=== PATIENT | male | born 1965 | race Caucasian/White ===

== ENCOUNTER → 2017-05-17 | Outpatient (CLI) | payer OTHER, BC ==
[~2017-05-17] MED LIST: ATOR-24 PO; CYM30 PO; DICL-201 PO; HYDC25 PO; LISI-729 PO; MELO15TA4 PO; METF500T PO; MULT-506 PO; OXYC-57 PO; PRLSR20 PO
[2017-05-17 13:38] LABS: BASO % 0.5 %; BASO ABS # 0.03 K/uL (0-0.2); COMPLETE YES; EOS % 4.1 %; HEMATOCRIT 42.9 % (42-52); IG% 0.4 %; LYMPH % 38.6 %; LYMPH ABS # 2.17 K/uL (1.2-3.4); MEAN CELL VOLUME 94.1 fL (80-100); MEAN PLATELET VOLUME 10.1 fL (7.4-10.4); NEUT % 45.4 %; PLATELET COUNT 213 K/uL (130-400); RED BLOOD COUNT 4.56 M/uL (4.7-6.1); WHITE BLOOD COUNT 5.62 K/uL (4.8-10.8)
[2017-05-17 14:05] LABS: BLOOD UREA NITROGEN 13 mg/dl (7-18); BUN/CREATININE RATIO 12.9 (10-20); CALCIUM 9.4 mg/dl (8.5-10.1); CARBON DIOXIDE 30 mmol/L (21-32); CHLORIDE 101 mmol/L (98-107); GLUCOSE 109 mg/dl (70-99); POTASSIUM 3.8 mmol/L (3.5-5.1); SODIUM 138 mmol/L (136-145)
== END | disposition home or self-care (01) ==
LOC: C.LABBC 09:59
PROVIDERS: ATTEND Orthopaedic Surgery
DX: S83.241D Other tear of medial meniscus, current injury, right knee, subsequent encounter (principal); X58.XXXD Exposure to other specified factors, subsequent encounter; Z01.812 Encounter for preprocedural laboratory examination

== ENCOUNTER → 2017-05-27 | Day surgery (SDC) | payer OTHER, BC ==
[2017-05-19 08:02] VITALS: Ht 177.8 cm; Wt 123.6 kg
[~2017-05-27] VITALS: Ht 177.8 cm; Wt 123.6 kg
[~2017-05-27] MED LIST changes: +ATROPINE SULFATE 0.1 MG/ML 5ML SYR IV PRN; +CEFAZOLIN 3000 MG/65 ML D5W IV SCH; +DEXAMETHASONE SOD INJ 4 MG/ML VIAL ONE; +EpHEDrine SULFATE INJ 50 MG/ML AMP IV PRN; +EpINEphrine INJ 1MG/ML AMP 1 MG/ML AMP ONE; +FENTANYL CITRATE INJ 50 MCG/1 ML 2 ML VIAL IV PRN; +FENTANYL CITRATE INJ 50 MCG/1 ML 2 ML VIAL ONE; +HYDROmorphone INJ 1 MG/ML SYR IV PRN; +KETOROLAC TROMETHAMINE 30 MG/ML VIAL ONE; +LACTATED RINGER'S 1000ML 1,000 ML IV SCH; +LIDOCAINE HCL 2% 2 ML VIAL (20MG/ML) ONE; +MIDAZOLAM HCL 1 MG/ML 2ML VIAL ONE; +ONDANSETRON INJ 2 MG/ML 2 ML VIAL IV PRN; +ONDANSETRON INJ 2 MG/ML 2 ML VIAL ONE; +OXYCODONE/ACETAMINOPHEN 5-325 TAB PO PRN; +PROMETHAZINE HCL INJ 12.5 MG in SODIUM CHLORIDE 0.9% 50ML 50 ML IV PRN; +PROPOFOL IV EMULSION 10 MG/ML 20 ML VIAL IV ONE; +ROPIVACAINE 0.5% 5 MG/ML 30 ML VIAL ONE; +SODIUM CHLORIDE 0.9% 1000ML 1,000 ML IV SCH
--- NOTE | 2017-05-27 11:40 | History & Physical Bridge - [place] ---
H&P Re-Evaluation Bridge Note: I have examined the patient, reviewed the History & Physical and in the interval since the performance of the History & Physical I have noted the following changes of clinical significance: No changes noted
--- NOTE | 2017-05-27 14:52 | Discharge Instructions-SurgCtr ---
Discharge Instructions Date of Service May 27, 2017. Visit Reason for Visit: Acute Meniscal Tear Medial Discharge Discharge Diagnosis / Problem: SAME ABOVE Discharge Goals Goal(s): Decrease discomfort, Improve function Medications Stopped Medications Name(s): METFORMIN STOPPED WEDNESDAY Restart Stopped Medication(s): FEBRUARY RESTART 05/27/2017 Activity Recommendations Activity Limitations: as noted below Lifting Limitations: until after follow-up appointment Exercise/Sports Limitations: until after follow-up appointment Anesthesia . Post Anesthesia Instructions: If you have had General Anesthesia or IV Sedation: * Do not drive today. * Resume driving when surgeon permits. * Do not make important decisions or sign legal documents today. * Call surgeon for: 1. Temperature elevations greater than 101 degrees F. 2. Uncontrollable pain. 3. Excessive bleeding. 4. Persistent nausea and vomiting. 5. Medication intolerance (nausea, vomiting or rash). * For nausea and vomiting use only clear liquids such as: tea, soda, bouillon until nausea subsides, then gradually increase diet as tolerated. * If you have any concerns or questions, call your surgeon's office. If physician is unavailable and it is an emergency, call 911 or go to the nearest emergency room. . Instructions / Follow-Up Instructions / Follow-Up MEDICATIONS: * Resume previous medications unless instructed otherwise by your surgeon. * Always take pain medication on a full stomach or with food to avoid upset stomach. * Do not drink alcohol or drive while taking narcotics. * Ibuprofen or Tylenol may be taken if narcotic not needed. SPECIAL CARE INSTRUCTIONS: __ None _X_ Keep extremity elevated and iced x 48 hours; apply ice 20-30 minutes 8-10 times/day. May remove at night. _X_ Crutches _X_ May discard when able __ Brace/Post-op shoe __ 24 hrs/day __ Remove at night _X_ Dressing __ Maintain until seen in office, may shower with plastic over site _X_ Remove dressings in 24-48 hours and then may shower _X_ Cover incisions with band-aids after showering __ Do not remove steri-strips Call physician if chills or temperature rises above 102 degrees or pain unrelieved by prescribed pain medications. Office [phone] Diet Recommendations Home Diet: no limitations Fluid Restriction: None Procedures Procedures Performed: Right Knee Arthroscopy With Partial Medial Meniscectomy Pending Studies Studies pending at discharge: no Work Instructions Return To Work: after follow-up Medical Emergencies . Who to Call and When: Medical Emergencies: If at any time you feel your situation is an emergency, please call 911 immediately. . Non-Emergent Contact Non-Emergency issues call your: Primary Care Provider Call Non-Emergent contact if: you have a fever, temperature is above 101.5 . . "Provider Documentation" section prepared by Saurabh Méndez. .
--- NOTE | 2017-05-27 15:05 | [facility] Post Operative Brief Note ---
Immediate Operative Summary Operative Date May 27, 2017. Pre-Operative Diagnosis Acute Medial Meniscus Tear Right Knee and Chondromalacia Post-Operative Diagnosis same Procedure(s) Performed Right Knee Arthroscopy With Partial Medial Meniscectomy and Chondroplasty Surgeon Dr. Josr Vale Gas Charger Surgeon(s) Junaid Méndez PA-C Estimated Blood Loss 5CC Findings as above Specimens none Complication(s) None Disposition Recovery Room / PACU
[2017-05-27 15:23] VITALS: TEMP 36.4
--- NOTE | 2017-05-27 15:46 | Anesthesia Progress Nt - [facility] ---
Anesthesia Post Op Note Date & Time May 27, 2017 at 15:45 Vital Signs Pain Intensity: 5.0 Vital Signs Past 12 Hours Date Time Temp Pulse Resp B/P (MAP) Pulse Ox O2 Delivery O2 Flow Rate FiO2 05/27/17 15:23 36.4 78 18 158/80 (106) 98 Room Air 05/27/17 15:17 36.4 78 18 05/27/17 15:17 79 18 93 05/27/17 15:15 143/88 05/27/17 15:12 78 18 05/27/17 15:12 77 18 95 05/27/17 15:10 138/80 05/27/17 15:07 80 12 93 05/27/17 15:07 80 12 05/27/17 15:05 153/85 05/27/17 15:02 73 15 05/27/17 15:02 74 15 99 05/27/17 15:00 146/89 05/27/17 14:57 71 17 99 05/27/17 14:57 73 17 05/27/17 14:55 141/89 05/27/17 14:52 75 18 05/27/17 14:52 74 18 98 05/27/17 14:50 142/88 05/27/17 14:48 36.1 78 20 141/81 98 Mask 6 05/27/17 14:47 78 18 05/27/17 14:47 78 18 141/81 94 05/27/17 12:45 37.0 78 22 138/88 (105) 95 Room Air Notes Mental Status: alert / awake / arousable, participated in evaluation Pt Amnestic to Procedure: Yes Nausea / Vomiting: adequately controlled Pain: adequately controlled Airway Patency, RR, SpO2: stable & adequate BP & HR: stable & adequate Hydration State: stable & adequate Anesthetic Complications: no major complications apparent
[2017-05-27 15:53] VITALS: BP 139/88; PULSE 74; O2SAT 98
--- NOTE | 2017-05-29 09:00 | OPERATIVE REPORT ---
DATE OF OPERATION: 05/27/2017 PREOPERATIVE DIAGNOSIS: Recurrent medial meniscal tear of the right knee. 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 PROCEDURE: Right knee diagnostic arthroscopy with chondroplasty and partial medial meniscectomy. SURGEON: Dr. Asif Vale. DANCE PROFESSOR: Junaid Méndez PA-C, whose assistance was necessary for positioning the hand and helping with instrumentation. ANESTHESIA: General with a right interscalene nerve block. COMPLICATIONS: None. CONDITION: Stable to PACU. INDICATIONS: Sreekanth is a pleasant 52-year-old male who injured his knee while at work over 6 months ago. I did a knee arthroscopy on him about 6 months ago with partial medial meniscectomy. I was able to take the meniscus right back to stable margins. Initially, postoperatively he did fantastic, he was not having any knee pain and then he reinjured his right knee and then his knee pain abruptly returned. I treated him conservatively for close to 4 months but his knee pain was not improving. I got an MRI which showed a new medial meniscal tear. He elected to undergo arthroscopy. OPERATION AND FINDINGS: On 05/27/2017 he arrived at [facility] for the above procedure. He was seen in the preoperative holding area and the operative extremity was identified and signed. He was given a preoperative antibiotic, taken back to the operating room, laid on the table in supine position and put under general anesthesia. The right knee was then prepped and draped in sterile fashion. Time-out was done and the patient and operative extremity was properly identified. A scope was introduced in the lateral parapatellar portal. Diagnostic arthroscopy showed no cartilage damage to the trochlea. There were no loose bodies in the suprapatellar pouch. The scope was brought into the medial compartment. There was grade 2 and grade 3 chondral changes throughout the distal medial femoral condyle and some grade 2 chondral changes on the tibial plateau. There was a new radial tear of the medial meniscus. A medial parapatellar portal was made under direct visualization. A probe was used to probe the meniscus and it was definitely a new tear. A shaver was used to remove the meniscal fragments back to stable margins. The shaver was also used to remove all unstable cartilaginous fragments and complete a chondroplasty. The scope was then brought into the trochlea. ACL and PCL were intact. The scope was brought into the lateral compartment and the cartilage and meniscus were completely intact laterally. The scope was then put into the medial parapatellar portal. Repeat diagnostic arthroscopy showed no additional pathology. Multiple pictures were taken of the medial meniscus. Arthroscopic instruments were removed from the knee. Portal sites were closed with 3-0 nylon. The knee was then injected with 30 mL of ropivacaine and Toradol. He was then placed in a soft compressive dressing, extubated, transferred to a [facility] and taken to the postanesthesia care unit in stable condition. He tolerated the procedure well. I attest to the content of the Intraoperative Record and any orders documented therein. Any exception s are noted below.
== END | disposition home or self-care (01) ==
LOC: X.SURG 12:26
PROVIDERS: ATTEND Orthopaedic Surgery
DX: M23.231 Derangement of other medial meniscus due to old tear or injury, right knee (principal); X58.XXXA Exposure to other specified factors, initial encounter; E11.9 Type 2 diabetes mellitus without complications; Z82.49 Family history of ischemic heart disease and other diseases of the circulatory system; Z83.3 Family history of diabetes mellitus; Z82.3 Family history of stroke

== ENCOUNTER 2025-08-06 07:15 | Observation (INO) ==
--- NOTE | 2025-07-10 14:02 | PAT Medication Instructions ---
Medication Instructions Date of Service July 10, 2025 Home Medications Medication Instructions Recorded celecoxib 200 mg capsule (Celebrex) 200 mg PO BID PRN pain #60 caps 06/12/25 tramadol 50 mg tablet 50 mg PO Q8H PRN pain #30 tabs 07/10/25 hydrochlorothiazide 25 mg tablet 25 mg PO QAM lisinopril 20 mg tablet 20 mg PO QAM metformin 500 mg tablet 500 mg PO BID montelukast 10 mg tablet 10 mg PO PM multivitamin 1 tab PO DAILY omeprazole 20 mg capsule,delayed release 20 mg PO QAM potassium 99 mg tablet 99 mg PO DAILY rosuvastatin 10 mg tablet 10 mg PO PM sertraline 25 mg tablet 25 mg PO QAM celecoxib 200 mg capsule (Celebrex) 200 mg PO BID PRN tramadol 50 mg tablet 50 mg PO Q8H PRN ASK your surgeon for instructions celecoxib 200 mg capsule (Celebrex) 200 mg PO BID PRN DO NOT take the morning of surgery hydrochlorothiazide 25 mg tablet 25 mg PO QAM lisinopril 20 mg tablet 20 mg PO QAM metformin 500 mg tablet 500 mg PO BID multivitamin 1 tab PO DAILY potassium 99 mg tablet 99 mg PO DAILY Take morning of surgery With a small sip of water, OTHERWISE NOTHING TO EAT OR DRINK AFTER MIDNIGHT: omeprazole 20 mg capsule,delayed release 20 mg PO QAM sertraline 25 mg tablet 25 mg PO QAM tramadol 50 mg tablet 50 mg PO Q8H PRN(if needed) Take evening before surgery metformin 500 mg tablet 500 mg PO BID montelukast 10 mg tablet 10 mg PO PM rosuvastatin 10 mg tablet 10 mg PO PM tramadol 50 mg tablet 50 mg PO Q8H PRN(if needed) Other Notes If you have any questions please call us at [phone] or [phone] or [phone] or [phone]
--- NOTE | 2025-07-17 08:45 | Anesthesiology Consultation ---
Date of Service July 17, 2025 Assessment & Plan (1) Encounter for pre-operative examination: - awaiting 05/2025 signed cardiology office note and stress test from Dr. Araseli Alas. - check BSG am DOS. Chart Review Chart Review: Pending: Refer to Additional Notes / Consult section and Patient seen in Pre Admission Testing Teaching & Discussion Pre-Anesthesia Teaching/Discussion Notes: Instructed NPO after midnight before surgery, except medications with 15 cc of water. Medication instructions provided according to the PAT guidelines. History Surgery Operation Date: 08/06/25 12:00 Proposed Procedures p Robotic Assisted Left Total Knee Arthroplasty - Asif Vale, Height/Weight Height: 5 ft 10 in Weight: 125.7 kg Allergies Allergy/AdvReac Type Severity Reaction Status Date / Time No Known Allergies Allergy Verified 07/10/25 08:21 Medications Home Medications Medication Instructions Recorded Confirmed Last Taken hydrochlorothiazide 25 mg tablet 25 mg PO QAM 05/16/25 07/10/25 05/23/25 lisinopril 20 mg tablet 20 mg PO QAM 05/16/25 07/10/25 05/23/25 metformin 500 mg tablet 500 mg PO BID 05/16/25 07/10/25 05/23/25 montelukast 10 mg tablet 10 mg PO PM 05/16/25 07/10/25 05/23/25 multivitamin 1 tab PO DAILY 05/16/25 07/10/25 05/23/25 omeprazole 20 mg capsule,delayed 20 mg PO QAM 05/16/25 07/10/25 05/23/25 release potassium 99 mg tablet 99 mg PO DAILY 05/16/25 07/10/25 05/23/25 rosuvastatin 10 mg tablet 10 mg PO PM 05/16/25 07/10/25 05/23/25 sertraline 25 mg tablet 25 mg PO QAM 05/16/25 07/10/25 05/23/25 celecoxib 200 mg capsule (Celebrex) 200 mg PO BID PRN pain #60 caps 06/12/25 07/10/25 Unknown tramadol 50 mg tablet 50 mg PO Q8H PRN pain #30 tabs 07/10/25 07/10/25 Unknown Past Medical History Medical History (Updated 07/17/25 @ 10:31 by Marlen Springer PA-C) Allergic rhinitis Aortic stenosis Mild aortic stenosis (STU 1.8 cm2, MG 13 mmHg, DVI 0.5) on 02/2025 echo report; follows with Dr. Marx, [facility] Asthma stable, no inhaler Diabetes mellitus, type 2 GERD (gastroesophageal reflux disease) controlled, stable per pt History of COVID-19 (~03/2025) x 2, most recent positive test with [facility], 04/09/2025, symptoms resolved Hyperlipidemia Hypertension controlled, stable per pt Sleep apnea CPAP-compliant Patient denies h/o stroke, seizures, heart attack, heart failure, blood clots/DVTs or blood transfusions. Exercise / Class Metabolic Activity III < 4 Walking/Shop/Light housework (denies chest discomfort or shortness of breath with usual activities, not routinely walking up a flight of stairs due to knee dysfunction) Past Surgical History Surgical History (Updated 07/17/25 @ 10:31 by Marlen Springer PA-C) History of arthroscopy of right knee x 2 History of carpal tunnel release of both wrists History of inguinal hernia repair left History of tonsillectomy Hx of arthroscopy of left knee (05/24/25) Past Anesthesia History No Hx of Anesthesia Complications and No Family Hx of Anesthesia Complications History of PONV No Hx of PONV and No Hx of Motion Sickness Social History Smoking Status: Former smoker Smoking cigarettes per day: tobaccoless chew x 15 years Do You Dip or Chew Tobacco: No (quit 2004) Smoking End Date: 1987 Hx Alcohol Use: Yes alcohol intake frequency: a few times a month Hx Substance Use: No substance use type: does not use Review of Systems Patient denies chest pain, shortness of breath, dyspnea on exertion, fever, chills, cough, wheezing, or palpitations. Physical Exam Vital Signs Vitals BP 129/59 P 64 TEMP 98.5 SP02 97% on RA RESP 18 Physical Patient resting comfortably in chair in no acute distress, alert and oriented, responding appropriately throughout visit Full cervical extension range of motion without pain TMD 3.5 finger breadths Mallampati Score 2 Dentition: several caps/crowns, denies chipped or loose teeth, implants or bridges Lungs: normal respiratory effort. Good air movement, clear throughout to auscultation, no adventitious breath sounds Cardiac: regular rate and rhythm, no murmurs noted Carotid arteries: negative bruit bilat Lab Results Anesthesia Preop Results Results Anesthesia Widget: WBC 4.40 K/ul (4.8-10.8) L 07/17/25 Hgb 13.3 g/dl (14.0-18.0) L 07/17/25 Hct 37.4 % (42.0-52.0) L 07/17/25 Plt 187 K/uL (130-400) 07/17/25 Na 140 mmol/L (136-145) 07/17/25 K 4.3 mmol/L (3.5-5.1) 07/17/25 Cl 103 mmol/L (98-107) 07/17/25 CO2 32 mmol/L (21-32) 07/17/25 BUN 16 mg/dl (6-23) 07/17/25 Creat 0.84 mg/dl (0.6-1.4) 07/17/25 Glucose Level 112 mg/dl (70-99(Fasting)) H 07/17/25 POC Glucose 143 mg/dl (70-99) H 05/24/25 PT 10.2 Seconds (9.0-12.0) 07/17/25 PTT 25 Seconds (21-31) 07/17/25 INR 0.9 (0.9-1.1) 07/17/25 HA1c 6.2 % (4.5-5.6) H 07/17/25 Blood Type B Positive 07/17/25 Antibody Screen NEGATIVE 07/17/25 Testing Electrocardiogram Date: 12/27/24 Sinus rhythm, rate 79 bpm Incomplete RBBB and left axis anterior fascicular block Chest X-Ray Date: 07/17/25 Heart size and pulmonary vasculature are normal. No consolidation or pleural effusion. IMPRESSION: No acute findings. Echocardiogram Date: 03/23/25 EF 55% Unable to comment on regional wall motion Mild aortic stenosis (STU 1.8 cm2, MG 13 mmHg, DVI 0.5) Other Testing Cardiac MRI 06/18/25 Normal LV chamber size, wall motion and systolic function; LVEF 65% Normal RV chamber size and systolic function, RVEF 51% Functional bicuspid aortic valve with good leaflet excursion. STU by planimetry 2.07 cm sq Ascending aorta is mildly dilated (3.5 cm) with the remainder of the thoracic aorta normal in diameter. No coarctation noted
[~2025-08-06 07:15] MED LIST changes: -ATOR-24 PO; -ATROPINE SULFATE 0.1 MG/ML 5ML SYR IV PRN; +BUPIVACAINE 0.5 % 5 MG/1 ML PF 10ML VIAL ONE; -CEFAZOLIN 3000 MG/65 ML D5W IV SCH; -CYM30 PO; -DEXAMETHASONE SOD INJ 4 MG/ML VIAL ONE; -DICL-201 PO; -EpHEDrine SULFATE INJ 50 MG/ML AMP IV PRN; -EpINEphrine INJ 1MG/ML AMP 1 MG/ML AMP ONE; -FENTANYL CITRATE INJ 50 MCG/1 ML 2 ML VIAL IV PRN; -FENTANYL CITRATE INJ 50 MCG/1 ML 2 ML VIAL ONE; -HYDC25 PO; -HYDROmorphone INJ 1 MG/ML SYR IV PRN; -KETOROLAC TROMETHAMINE 30 MG/ML VIAL ONE; -LACTATED RINGER'S 1000ML 1,000 ML IV SCH; -LIDOCAINE HCL 2% 2 ML VIAL (20MG/ML) ONE; -LISI-729 PO; -MELO15TA4 PO; -METF500T PO; -MIDAZOLAM HCL 1 MG/ML 2ML VIAL ONE; -MULT-506 PO; -ONDANSETRON INJ 2 MG/ML 2 ML VIAL IV PRN; -ONDANSETRON INJ 2 MG/ML 2 ML VIAL ONE; -OXYC-57 PO; -OXYCODONE/ACETAMINOPHEN 5-325 TAB PO PRN; -PRLSR20 PO; -PROMETHAZINE HCL INJ 12.5 MG in SODIUM CHLORIDE 0.9% 50ML 50 ML IV PRN; -PROPOFOL IV EMULSION 10 MG/ML 20 ML VIAL IV ONE; -SODIUM CHLORIDE 0.9% 1000ML 1,000 ML IV SCH
[2025-08-06] MEDS ORDERED: MIDAZOLAM HCL 1 MG/ML 2ML VIAL ONE (07:44)
[2025-08-06] MEDS ORDERED: PROPOFOL IV EMULSION 10 MG/ML 20 ML VIAL IV ONE ×2 (07:46→09:40)
[2025-08-06] MEDS ORDERED: LIDOCAINE 2% 2 ML VIAL/AMP(20MG/ML) INFIL ONE (07:46)
[2025-08-06] MEDS ORDERED: ONDANSETRON INJ 2 MG/ML 2 ML VIAL ONE (07:46)
[2025-08-06] MEDS: LR 500ML BOLUS, THEN 15ML/HR IV SCH (07:53)
[2025-08-06] MEDS: LR 60ML/HR IV SCH (07:53)
[2025-08-06] MEDS: ACETAMINOPHEN 500 MG TAB PO SCH ×2 (07:53→15:01)
[2025-08-06] MEDS: GABAPENTIN 600 MG DOSE PO SCH (07:54)
[2025-08-06] MEDS: FAMOTIDINE 20 MG TAB PO SCH (07:54)
[2025-08-06] MEDS: dexAMETHasone**PF** 10 MG/ML VIAL IV SCH (07:54)
--- NOTE | 2025-08-06 08:16 | History & Physical Bridge Note ---
Date of Service August 06, 2025 History & Physical Bridge Note I have examined the patient, reviewed the History & Physical and in the interval since the performance of the History & Physical I have noted the following changes of clinical significance: no changes noted
[2025-08-06] MEDS ORDERED: ONDANSETRON INJ 2 MG/ML 2 ML VIAL IV PRN ×2 (08:45→12:12)
[2025-08-06] MEDS ORDERED: ATROPINE SULFATE 0.1 MG/ML 10ML SYR IV PRN (08:45)
[2025-08-06] MEDS: TRANEXAMIC ACID 1,000 MG **IV Pre-op IV SCH (08:55)
[2025-08-06] MEDS: ceFAZolin 3000MG 3,000 MG/72.5 ML BAG IV SCH (09:06)
[2025-08-06] MEDS: ROPIV 0.5% 246mg, Ketorolac 30mg, EPINEPHrine 0.5mg in NSS INFIL SCH (09:36)
[2025-08-06] MEDS: ORTHO JOINT ANESTHETIC ONE (09:36)
--- NOTE | 2025-08-06 10:17 | Operative Report ---
[facility] Post Operative Report Pre & Post Diagnosis Operation Date: 08/06/25 09:00 Pre-Op Diagnosis: Left Knee Arthritis Post-Op Diagnosis: Left Knee Arthritis I identified the patient and participated in the time-out.: Yes Procedure Operation Date: 08/06/25 09:00 Actual Procedures p Robotic Assisted Left Total Knee Arthroplasty(Left) - Asif Vale DO Surgeon Asif Vale DO Gas Distribution Supervisor Douglas Soni PA-C Estimated Blood Loss 30 Findings Consistent with Post-Op Diagnosis Specimens Left femoral and tibial bone Description of Procedure Implants used: I used a Nicko Persona total knee arthroplasty system with a size 8 standard PS femur, F tibia, 32 patella, and a size 12 CPS polyethylene bearing. All components were press-fit into place. Sreekanth butler [facility] for the above procedure. He was seen in the preoperative holding area and the operative extremity was identified and signed. he was given a preoperative antibiotic, TXA, a spinal anesthetic and an adductor nerve block. He was taken back to the operating room and laid on the table in supine position. He was given basic sedation. The operative knee was then prepped and draped in sterile fashion. A timeout was done, and the patient and the operative extremity was properly identified. A midline incision was made directly over the patella. Dissection was taken down to the extensor mechanism. A medial parapatellar arthrotomy was used. The medial retinaculum was released and the fat pad was mostly excised. The knee wa s flexed and the ACL, PCL, and meniscus were removed. The alignment of the knee replacement was assisted with a Digital Bloom robotic knee. The femoral array was pinned in the distal femur and the tibial array was pinned using a percutaneous technique in the upper shaft of the tibia. The robot was appropriately calibrated and the structure of the knee was mapped out. The components were then manipulated on the screen to account for any malalignment and to assist in gap balancing. Once I was happy with the placement of the components on the screen, a distal femoral cutting guide was brought in place. The distal femur was then resected. The femur measured to be a size 8. A 4-in-1 cutting block was then put into place by the robot and 2 peg holes were drilled. The 4-in-1 cutting block was then impacted into place and anterior, posterior, and chamfer cuts were made. The cutting block was then brought down to the tibia and pinned into place. The proximal tibia was then resected. The posterior aspect of the knee was then opened up and any additional meniscus fragments and osteophytes were removed. The tibia measured to be a size F. The tibial plate was then placed in the appropriate rotation and the tibia was drilled and punched. Trial components were then placed. The patella was then everted and 9 mm was resected off the posterior aspect of the patella. The patella measured to be a size 32. 3 peg holes were then drilled. A trial patella was placed. A size 12 CPS polyethylene insert was then trialed. The knee was brought through a full range of motion and felt to be stable. Trial components were then removed. The surrounding soft tissues were injected with 100 cc of an orthopedic pain control cocktail. All components were then press-fit into place. The final polyethylene insert was then snapped into place. The tourniquet was deflated. Hemostasis was obtained. A dilute betadyne lavage was then done for 3 minutes. The joint was then irrigated with normal saline solution. The medial parapatellar arthrotomy was then closed with #1 Vicryl suture. The skin was closed with 2-0 Vicryl, 3-0V lock suture, and Osman Zipline. A soft compressive dressing was placed. He was then transferred to a hospital bed and taken to the postanesthesia care unit in stable condition. He tolerated the procedure well. Douglas Soni PA-C, was present for the entire procedure. He was critical for patient positioning, prepping, draping, retraction exposure, wound closure and application of sterile dressing. I attest to the content of the Intraoperative Record and any orders documented therein. Any exceptions are noted below.
--- NOTE | 2025-08-06 11:07 | XRay Report ---
XR knee LT 1 or 2V routine CLINICAL HISTORY: Surgical Post Op COMPARISON: None FINDINGS: Left knee prosthesis shows no hardware complication. There is expected soft tissue spine IMPRESSION: Unremarkable postoperative exam. ACT 112: Negative or not required by law. Electronically signed by: Randy Daniel M.D. 08/06/2025 11:05 AM
--- NOTE | 2025-08-06 11:52 | Anesthesiology Progress Note ---
Date of Service August 06, 2025 Anesthesia Post Procedure Vital Signs Vital Signs: Temp Pulse Resp BP Pulse Ox O2 Del Method O2 Flow Rate 08/06/25 11:45 98.4 F 63 12 136/71 98 Nasal Cannula 2 08/06/25 11:35 62 12 127/67 97 Nasal Cannula 2 08/06/25 11:25 63 15 133/76 96 Nasal Cannula 2 08/06/25 11:15 69 12 125/68 90 Room Air 08/06/25 11:05 71 13 130/71 92 Room Air 08/06/25 10:55 76 17 133/72 93 Room Air 08/06/25 10:46 96.8 F L 77 14 144/68 H 92 Room Air 08/06/25 07:25 98.1 F 63 20 166/87 H 96 Room Air Transfer of Care Handoff Completed per policy Notes Mental Status: alert / awake / arousable and participated in evaluation Patient Amnestic to Procedure: Yes Nausea / Vomiting: adequately controlled Pain: adequately controlled Airway Patency, RR, SpO2: stable & adequate BP & HR: stable & adequate Hydration State: stable & adequate Neuraxial Anesthesia: was administered and sensory block is resolving Anesthetic Complications: no major complications apparent and Pt Satisfied with anesthetic care
[2025-08-06] MEDS ORDERED: PHARMACY GLYCEMIC MGMT CONSULT PRN (12:12)
[2025-08-06] MEDS ORDERED: NALOXONE HCL 0.4 MG/1 ML VIAL/CARP IV PRN (12:12)
[2025-08-06] MEDS ORDERED: MAGNESIUM HYDROXIDE SUSP 30 ML UDC PO PRN (12:12)
[2025-08-06] MEDS ORDERED: METOCLOPRAMIDE HCL INJ 5 MG/ML 2 ML VIAL IV PRN (12:12)
[2025-08-06] MEDS ORDERED: GLUCOSE 10 TAB/TUBE PO PRN (12:45)
[2025-08-06] MEDS ORDERED: DEXTROSE 50% 50 ML SYRINGE IV PRN (12:45)
[2025-08-06] MEDS ORDERED: CARBOHYDRATES FOR HYPOGLYCEMIA PO PRN (12:45)
[2025-08-06] MEDS ORDERED: GLUCOSE 40% GEL 15 GM TUBE PO PRN (12:45)
[2025-08-06] MEDS ORDERED: GLUCAGON FOR INJ 1 MG VIAL SQ PRN (12:45)
[2025-08-06] MEDS: KETOROLAC TROMETHAMINE 15 MG/ML VIAL IV SCH (13:13)
[2025-08-06] MEDS: SODIUM CHLORIDE 0.9% 1,000 ML IV SCH (13:14)
--- NOTE | 2025-08-06 13:21 | Pharmacy Report ---
Pharmacy Glycemic Short Note 2 - Date of Service August 06, 2025 - Glycemic Short BSG Results (Last 24 hours): 08/06/25 08/06/25 08/06/25 07:41 10:48 12:26 POC Glucose 115 H 140 H 133 H OUTPATIENT ANTIDIABETIC REGIMEN: * metformin 500 mg bid ASSESSMENT: * 60 year old s/p surgery, POD 0 - pharmacy consulted for glycemic management. Patient received IV dexamethasone preoperatively, therefore anticipate steroid induced hyperglycemia. Will start novolog weight based stress 2 dosing and add on conservative basal dose Lantus 15 units x 1 to cover steroid effects. PLAN FOR INPATIENT GLYCEMIC CONTROL: * Hold outpatient oral diabetes medications * Basal insulin * Lantus 15 units x 1 * Bolus insulin * NovoLog per scale ACHS or Q6hrs while NPO * Goal Range: Low 110 mg/dL - High 140 mg/dL * Correction Factor: 20 mg/dL/unit * Nutritional / Prandial insulin per carb ratio of 1 unit per 7 grams CHO consumed
[2025-08-06] MEDS: LANTUS PER UNIT CHARGE SC ONE (13:23)
[2025-08-06] MEDS: INSULIN ASPART PER UNIT CHARGE SC SCH (13:23)
[2025-08-06 15:01] VITALS: RESP 16
[2025-08-06] MEDS ORDERED: Nursing to Pharmacy Communication SCH (19:45)
[2025-08-06] MEDS: DOCUSATE SODIUM 100 MG CAP PO SCH (20:22)
[2025-08-06] MEDS: MONTELUKAST SODIUM 10 MG TABLET PO SCH (20:22)
[2025-08-06] MEDS: SENNA 8.6 MG TAB PO SCH (20:22)
[2025-08-06] MEDS: ASPIRIN 81 MG ECTAB PO SCH (20:22)
[2025-08-06] MEDS: ROSUVASTATIN CALCIUM 10 MG TAB PO SCH (20:22)
[2025-08-07 07:40] VITALS: BP 148/84; PULSE 63; O2SAT 98
[2025-08-07] MEDS: HYDROmorphone INJ 0.5 MG/0.5 ML SYR IV PRN (07:49)
[2025-08-07 08:01] VITALS: TEMP 97.3
[2025-08-07] MEDS: hydroCHLOROthiazide 25 MG TAB PO SCH (08:15)
[2025-08-07] MEDS: SERTRALINE HCL 50 MG TABLET PO SCH (08:15)
[2025-08-07] MEDS: MULTIVITAMIN TAB PO SCH (08:16)
--- NOTE | 2025-08-07 08:53 | Orthopedic Progress Note ---
Date of Service August 07, 2025 Assessment & Plan (1) Status post total left knee replacement: * Continue Current Treatment * Disposition: home * Daily treatment: Physical Therapy/ Occupational Therapy per protocol * Weight bearing status: WBAT * Continue to monitor for ABLA * Pain control * DVT prophylaxis, ASA * Office/hospital f/u 2 weeks for progress check and staple/suture removal * Plan for discharge today pending PT/OT clearance Subjective .Active Problems: S/p left TKA POD 1 60 y/o male s/p left TKA. Doing well overall, pain managed and improved function. Denies fever/chills, chest pain/SOB, nausea/vomiting. Otherwise no complaints. Review of Systems All systems reviewed & are unremarkable except as noted in HPI & below. Physical Exam . * General: Alert and oriented, no acute distress * Constitutional: well-developed, well-nourished. * Respiratory: Normal respiratory effort, no distress * Gastrointestinal: No tenderness to palpation, no rigidity or guarding. * Skin: No rash or lesion. * Neurologic: Grossly normal * Musculoskeletal: left knee surgical dressing CDI, not removed for exam. Otherwise no obvious deformity or overlying skin changes RLE. Diffuse TTP distal thigh and knee region. Otherwise no specific tenderness of proximal thigh, lower leg, foot/ankle. AROM knee flexion 60 degrees. AROM knee extension significantly limited secondary to pain/weakness. AROM foot/ankle intact. Sensation intact plantar/dorsal foot. Brisk capillary refill. Results & Data Results & Data Laboratory Results . Diagnostic Findings . Knee X-Ray 08/06/25 10:48 XR knee LT 1 or 2V routine CLINICAL HISTORY: Surgical Post Op COMPARISON: None FINDINGS: Left knee prosthesis shows no hardware complication. There is expected soft tissue spine IMPRESSION: Unremarkable postoperative exam. ACT 112: Negative or not required by law. Electronically signed by: Randy Daniel M.D. 08/06/2025 11:05 AM PG Care Time/CCT Total # of Minutes Spent Total Time Spent with Patient: Total time spent is greater than 50% in coordination of care (as documented) at patient's floor/unit and/or counseling patient: Coding Level of Care Code 42430 Post Operative Follow-Up Diagnoses Status post total left knee replacement Z96.652
== END 2025-08-07 12:38 | disposition home health service (06) ==
LOC: 3E 07:15 → ASU 07:15